=== PATIENT | female | born 1990 | race Caucasian/White ===

== ENCOUNTER 2017-11-27 15:23 | Emergency (ER) | payer BC ==
[~2017-11-27 15:23] MED LIST: EMTRICITABINE/TENOFOVIR 200MG/300MG TAB PO SCH; RALTEGRAVIR 400 MG TAB PO SCH
[2017-11-27 15:32] VITALS: BP 125/71; PULSE 101; RESP 16; TEMP 98.6; O2SAT 97
[2017-11-27] MEDS ORDERED: ACETAMINOPHEN 325 MG TAB PO ONE (15:45)
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
[2017-11-27] MEDS ORDERED: AZITHROMYCIN 250 MG TAB PO ONE (16:59)
[2017-11-27] MEDS ORDERED: RALTEGRAVIR 400 MG TAB PO ONE (17:41)
[2017-11-28] MEDS ORDERED: EMTRICITABINE/TENOFOVIR 200MG/300MG TAB PO ONE (17:41)
== END 2017-11-27 21:10 | disposition home or self-care (01) ==
LOC: EEVIPCON 15:23
DX: Z04.41 Encounter for examination and observation following alleged adult rape (principal)
CPT/HCPCS: J0696

== ENCOUNTER 2017-12-02 16:00 | Emergency (ER) | payer BC ==
[2017-12-02 16:09] VITALS: BP 131/83
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
== END 2017-12-02 18:26 | disposition home or self-care (01) ==
LOC: EEVIPCON 16:00 → SANE 18:26
DX: T74.21XA Adult sexual abuse, confirmed, initial encounter (principal); Y07.9 Unspecified perpetrator of maltreatment and neglect